=== PATIENT | female | born 1950 | race Hispanic/Latino ===

== ENCOUNTER 2019-02-05 11:20 | Day surgery (SDC) | payer MEDICARE ==
[~2019-02-05 11:20] MED LIST: IOPIDINE ONE; MYDRIACYL ONE; NEOFRIN ONE
[2019-02-05] MEDS ORDERED: IOPIDINE OS ONE (11:23)
[2019-02-05] MEDS ORDERED: NEOFRIN OS ONE (11:23)
[2019-02-05] MEDS ORDERED: MYDRIACYL OS ONE (11:23)
[2019-02-05 12:45] VITALS: BP 139/75
== END 2019-02-05 11:21 | disposition home or self-care (01) ==
LOC: OR 11:20
PROVIDERS: ATTEND Specialist
DX: H26.492 Other secondary cataract, left eye (principal); K21.9 Gastro-esophageal reflux disease without esophagitis; N18.3 Chronic kidney disease, stage 3 (moderate); G62.9 Polyneuropathy, unspecified; M19.90 Unspecified osteoarthritis, unspecified site; Z88.0 Allergy status to penicillin; Z79.82 Long term (current) use of aspirin; Z79.899 Other long term (current) drug therapy; Z98.41 Cataract extraction status, right eye; Z98.42 Cataract extraction status, left eye; Z98.890 Other specified postprocedural states; Z90.710 Acquired absence of both cervix and uterus; Z90.721 Acquired absence of ovaries, unilateral; Z86.73 Personal history of transient ischemic attack (TIA), and cerebral infarction without residual deficits; Z86.2 Personal history of diseases of the blood and blood-forming organs and certain disorders involving the immune mechanism